=== PATIENT | female | born 1965 | race Caucasian/White ===

== ENCOUNTER 2017-01-19 14:15 | Inpatient (IN) | payer OTHER ==
--- NOTE | ~2017-01-19 | HP ---
History And Physical [place] [address] [facility] [place]. [address] NAME: DALE ANDREW : 67 STATUS : ADM IN [facility]#: [id number] AGE: 51 ADM/REG DATE : 01/19/17 MR#: [id number] REPORT SERV DATE: 01/19/17 DICTATED BY: DEBBIE TONEY DATE: 01/19/17 REPORT STATUS : Draft TRANSCRIBED BY: MODL DATE: 01/19/17 DATE OF ADMISSION: 01/19/2017 IDENTIFYING DATA: A 51-year-old white female, whose PCP is Dr. Paco Wall; GI, Dr. Jennifer Delatorre. CHIEF COMPLAINT: Nausea, vomiting, and abdominal pain. HISTORY OF PRESENT ILLNESS: This history of present illness is obtained by talking with the patient and her at bedside. I also spoke on the phone with Dr. Wall and reviewed his office notes as well as [employer] and [employer]. The patient states she was feeling fine until yesterday in the afternoon when she developed anorexia, then sharp colicky mid abdominal pain, slightly more in the right upper quadrant, associated with nausea, vomiting, that continued through the night. She was unable to keep anything down. She did not see any red or black color in her emesis. She had no diarrhea. She states she has no sick contacts other than her family dog had vomiting once. She has had no unusual food or water sources. She has not traveled outside of the local area. When she saw her primary care doctor in the office, she had resting tachycardia with heart rate reported to be 122 beats per minute. He did send her to have a stat CT scan abdomen and pelvis, and the radiologist stated the patient had mild dilatation of the proximal and mid small bowel with nondilated distal small bowel, suggesting possible early partial small bowel obstruction versus ileus or enteritis. The patient has had previous pancreatitis approximately 20 years ago. It was a year after she had her gallbladder out. She recalls having an ERCP done. No abnormality was found. She thereafter had some gastroparesis for a short time and tried Reglan, but did not tolerate it, and has not had any problems with this since. REVIEW OF SYSTEMS: She has a sore throat since vomiting. She has a headache today. She denies any diarrhea, fever. She denies any cough, chest pain, shortness of breath, bright red blood per rectum, melena, dysuria, peripheral edema, rash, or weight changes. She denies any history of diabetes, asthma, COPD, heart disease, stroke, seizure, peptic ulcer, liver disease, chronic kidney disease, kidney stones, cancer, or sleep apnea. ALLERGIES: NO KNOWN DRUG ALLERGIES. PAST MEDICAL HISTORY: In addition to the pancreatitis described above includes hypothyroidism, allergic rhinitis, transient elevation of blood pressure. She describes previous colonoscopy, at the same time, she had an EGD to evaluate for gastroesophageal reflux disease. HOME MEDICATIONS: Levothyroxine 50 mcg daily; Leatha p.r.n., allergies. History And Physical [address] [address] NAME: DALE ANDREW : [birth year] STATUS : ADM IN [facility]#: [id number] AGE: 51 ADM/REG DATE : 01/19/17 MR#: [id number] REPORT SERV DATE: 01/19/17 DICTATED BY: DEBBIE TONEY DATE: 01/19/17 REPORT STATUS : Draft TRANSCRIBED BY: JACKIE DATE: 01/19/17 PAST SURGICAL HISTORY: She has had a cholecystectomy, hysterectomy, tonsillectomy, a cystocele repair, and a left knee arthroscopy. SOCIAL HISTORY: She is a nurse. She is . She quit smoking cigarettes greater than 10 years ago. She denies using alcohol. FAMILY HISTORY: Mother with hypertension, hyperlipidemia, and thyroid disease. Dad with hypertension, hyperlipidemia, and chronic kidney disease. Siblings with thyroid disease. DIAGNOSTIC DATA: CT scan of abdomen and pelvis described in the history of present illness above did show a proximal and mid small bowel dilatation, otherwise, unremarkable, so it may represent ileus or partial small bowel or enteritis. LABORATORY DATA: Pending at this time. PHYSICAL EXAMINATION: VITAL SIGNS: Temperature 98, pulse 107, respirations 18, blood pressure 112/66, O2 saturation 95% on room air. Body mass index 33.0. GENERAL: Well-developed female, who appears mildly to moderately uncomfortable. HEENT: Head is atraumatic. Pupils are equal, round, and reactive to light. Extraocular motions are intact. No scleral icterus noted. Ear canals externally unremarkable. No inflammatory changes noted. Normal hearing bilaterally. Nose, noninflamed externally. Septum midline. Nares patent. Mouth is dry. Good gag. No redness of the throat, gums, or lips. NECK: Supple. No lymph node or thyroid enlargement. The carotids have good pulses. No bruits. LUNGS: Clear. Good air flow anterior and posteriorly. No wheezes. No rhonchi. Normal respiratory effort. HEART: Tachycardic and regular without murmur, gallop, click, or rub. ABDOMEN: Bowel sounds are very hypoactive. Abdomen is soft, nondistended. Minimally distended. She has moderate tenderness in the epigastric and periumbilical area. No mass. No organomegaly. No rebound. EXTREMITIES: Warm. Good pulses. No clubbing, no cyanosis, no edema. No actively inflamed skin or joints. NEUROLOGIC: She is alert, oriented, and cooperative with grossly normal mentation and speech as well as motor and cranial nerves 2 through 12. No Babinski. No clonus noted. ASSESSMENT: 1. Nausea, vomiting, and colicky abdominal pain with dilated small bowel. Differential diagnosis:. a. Partial small bowel obstruction from adhesions. b. Enteritis. c. Pancreatitis without CT evidence. d. Peptic ulcer disease. 2. Sinus tachycardia related to volume depletion. 3. Body mass index 33. 4. Hypothyroidism, on replacement. History And Physical [address] [address] NAME: DALE ANDREW : 67 STATUS : ADM IN [facility]#: [id number] AGE: 51 ADM/REG DATE : 01/19/17 MR#: [id number] REPORT SERV DATE: 01/19/17 DICTATED BY: DEBBIE TONEY DATE: 01/19/17 REPORT STATUS : Draft TRANSCRIBED BY: MODL DATE: 01/19/17 5. Previous pancreatitis 20 years ago. 6. Allergic rhinitis. 7. Previous gastroparesis right after pancreatitis. PLAN: The patient is admitted to the hospital. We will give her IV fluids. We will have p.r.n. medications for pain or nausea. We will get a followup abdominal series. We will have General Surgery see her if she does not have resolution of this soon. updated at the bedside at this time. DUNG/BROOKEL Debbie Toney M.D. / [id number] CC: Ryder Herrera III, D.O. Colleen Schmitt, M.D.
--- NOTE | ~2017-01-19 | DS ---
Discharge Summary [facility] [address] [place]. [address] NAME: DALE ANDREW : 67 STATUS : DIS IN PAT#: [id number] AGE: 51 ADM/REG DATE : 01/19/17 MR#: [id number] REPORT SERV DATE: 01/21/17 DICTATED BY: DEBBIE TONEY DATE: 01/20/17 REPORT STATUS : Draft TRANSCRIBED BY: MODL DATE: 01/20/17 ADMISSION DATE: 01/19/2017 DISCHARGE DATE: 01/20/2017 DISCHARGE DIAGNOSES: 1. Transient abdominal pain, nausea and vomiting, possible partial small bowel obstruction. 2. Sinus tachycardia due to volume depletion. 3. Hypothyroidism with low TSH suggesting possible over replacement. HISTORY: The patient had been doing well at home until the day prior to admission when she developed anorexia, colicky mid abdominal pain, slightly more in the right upper quadrant. She had associated nausea and vomiting that continued through the night. She is not able to keep anything down. There was no evidence of red or black color in her emesis. She had no diarrhea. She had no sick contacts other than her dog that had vomited once. There was no unusual food or water sources, and she had not traveled outside the country. When she saw her primary physician, Dr. Paco Wall in the office, she had resting tachycardia at 122 beats per minute, and she had a CT scan of the abdomen and pelvis, which revealed dilated small bowel loops, proximal and mid small bowel suggesting localized ileus, enteritis, or partial small bowel obstruction. The patient was referred to us for inpatient care. She was given IV fluids and parental medications for nausea. Her chemistries were unremarkable. Her white count was initially [address] and improved down to 11,000. She had no fever. She had an abdominal series on the morning of 01/20/2017 that was normal. She has no abdominal pain. No nausea. No vomiting. She is very hungry as of noon on the , so we are going to give her clear liquid lunch. If she tolerates that, we will advance it to a regular diet supper. If she does well with that, she can go home and follow up with her PCP next week. Her TSH was noted to be low at 0.011. PCP to follow this up. Her amylase and lipase and liver enzymes were normal. DISCHARGE MEDICATIONS: Levothyroxine 50 mcg daily (PCP to follow up TSH since it was low), Tylenol 650 q.6 hours p.r.n. pain or fever. I spent 70 minutes today with the patient with the discharge plans. DICTATED BY: Debbie Toney M.D. RSG/JACKIE Discharge Summary [address] [place]. [address] NAME: DALE ANDREW : 67 STATUS : DIS IN PAT#: [id number] AGE: 51 ADM/REG DATE : 01/19/17 MR#: [id number] REPORT SERV DATE: 01/21/17 DICTATED BY: DEBBIE TONEY DATE: 01/20/17 REPORT STATUS : Draft TRANSCRIBED BY: JACKIE DATE: 01/20/17 Debbie Toney M.D. / [id number] CC: Ryder Herrera III, D.O. Colleen Schmitt, M.D.
[2017-01-19 16:46] LABS: BASOPHILS 0.1 %; BASOPHILS ABSOLUTE 0.01 10/3/uL (0.0-0.16); EOSINOPHILS 0.1 %; EOSINOPHILS ABSOLUTE 0.01 10/3/uL (0.0-0.53); HEMATOCRIT 44.5 % (36.0-48.0); HEMOGLOBIN 15.5 g/dL (12.0-16.0); IMMATURE GRANULOCYTES 0.1 %; IMMATURE GRANULOCYTES ABSOLUTE 0.02 10/3/uL (0.0-0.11); LYMPHOCYTES 8.4 %; LYMPHOCYTES ABSOLUTE 1.18 10/3/uL (0.67-4.30); MANUAL DIFF NO %; MEAN CORPUS HGB CONC 34.8 g/dL (32.0-36.0); MEAN CORPUSCULAR HEMOGLOB 30.3 pg (26.0-34.0); MEAN CORPUSCULAR VOLUME 87.1 fL (80-100); MEAN PLATELET VOLUME 10.9 fL (9.2-13.0); MONOCYTES 6.3 %; MONOCYTES ABSOLUTE 0.88 10/3/uL (0.21-1.20); NEUTROPHILS ABSOLUTE 11.89 10/3/uL (2.02-8.40); PLATELET COUNT 229 10/3/uL (150-400); RBC DISTRIBUTION WIDTH 12.8 % (12.0-16.0); RED CELL COUNT 5.11 10/6/uL (4.0-5.6)
[2017-01-19 16:52] LABS: INTERNATIONAL NORMAL RATI 1.1 UNITS (-); PARTIAL THROMBO TIME 26.2 SEC (22.5-37.2); PROTIME (NOT ORD) 14.1 SEC (12.0-14.5)
[2017-01-19 17:12] LABS: A/G RATIO 1.1 (0.7-1.9); ALBUMIN 4.1 G/DL (3.5-5.0); ALKALINE PHOSPHATASE 64 U/L (45-117); BUN (BLOOD UREA NITROGEN) 21 MG/DL (6-23); CALCIUM, SERUM 9.5 MG/DL (8.5-10.4); CHLORIDE, SERUM 104 MMOL/L (96-112); CO2 (CARBON DIOXIDE) 28 MMOL/L (24-34); CREATININE 0.85 MG/DL (0.55-1.02); GFR AFRICAN AMERICAN 93 ML/MIN (>=60); GFR NON AFRICAN AMERICAN 80 ML/MIN (>=60); GLOBULIN 3.8 G/DL (2.5-4.1); GLUCOSE, SERUM 116 MG/DL (60-99); PHOSPHORUS, SERUM 4.1 MG/DL (2.5-4.5); POTASSIUM, SERUM 4.2 MMOL/L (3.5-5.3); SGOT(AST) 21 U/L (5-40); SGPT(ALT) 29 U/L (5-65); SODIUM, SERUM 140 MMOL/L (135-148); TOTAL BILIRUBIN 0.8 MG/DL (0-1.2); TOTAL PROTEIN 7.9 G/DL (6.0-8.5); ULTRASENSITIVE TSH 0.011 MCIU/ML (0.358-3.740)
[2017-01-20] MEDS ORDERED: SYN.05 PO (02:22)
[2017-01-20 05:39] LABS: BASOPHILS 0.2 %; BASOPHILS ABSOLUTE 0.02 10/3/uL (0.0-0.16); EOSINOPHILS 0.9 %; HEMATOCRIT 40.5 % (36.0-48.0); IMMATURE GRANULOCYTES 0.2 %; IMMATURE GRANULOCYTES ABSOLUTE 0.02 10/3/uL (0.0-0.11); LYMPHOCYTES 27.3 %; MANUAL DIFF NO %; MEAN CORPUS HGB CONC 34.6 g/dL (32.0-36.0); MEAN CORPUSCULAR HEMOGLOB 30.5 pg (26.0-34.0); MEAN CORPUSCULAR VOLUME 88.2 fL (80-100); MEAN PLATELET VOLUME 10.7 fL (9.2-13.0); MONOCYTES 10.3 %; MONOCYTES ABSOLUTE 1.13 10/3/uL (0.21-1.20); NEUTROPHILS 61.1 %; NEUTROPHILS ABSOLUTE 6.73 10/3/uL (2.02-8.40); PLATELET COUNT 216 10/3/uL (150-400); RBC DISTRIBUTION WIDTH 12.7 % (12.0-16.0); RED CELL COUNT 4.59 10/6/uL (4.0-5.6)
[2017-01-20 05:53] LABS: BUN (BLOOD UREA NITROGEN) 21 MG/DL (6-23); CALCIUM, SERUM 9.1 MG/DL (8.5-10.4); CHLORIDE, SERUM 107 MMOL/L (96-112); CO2 (CARBON DIOXIDE) 31 MMOL/L (24-34); GFR AFRICAN AMERICAN 100 ML/MIN (>=60); GFR NON AFRICAN AMERICAN 86 ML/MIN (>=60); GLUCOSE, SERUM 94 MG/DL (60-99); POTASSIUM, SERUM 3.7 MMOL/L (3.5-5.3); SODIUM, SERUM 144 MMOL/L (135-148)
[2017-01-20] MEDS ORDERED: T PO (12:30)
== END 2017-01-20 19:33 | disposition home or self-care (01) | DRG 390 ==
LOC: 6NO 14:15
PROVIDERS: Hospitalist
DX: K56.60 Unspecified intestinal obstruction (principal); E03.9 Hypothyroidism, unspecified; E86.9 Volume depletion, unspecified; K59.8 Other specified functional intestinal disorders; Z90.49 Acquired absence of other specified parts of digestive tract; Z90.710 Acquired absence of both cervix and uterus; Z87.891 Personal history of nicotine dependence; Z82.49 Family history of ischemic heart disease and other diseases of the circulatory system; Z68.33 Body mass index [BMI] 33.0-33.9, adult
CPT/HCPCS: 74022; 74177; 80048; 80053; 82150; 83690; 83735; 84100; 84443; 85025; 85610; 85730; 93005; A9270-GY; C9113; J2405; Q9967